=== PATIENT | male | born 1955 | race Caucasian/White ===

== ENCOUNTER 2024-08-16 10:45 | Emergency (ER) | payer MEDICARE, OTHER, SELFPAY ==
[2024-08-16 10:49] VITALS: BP 208/102
[2024-08-16 11:08] VITALS: BMI 46.1
[2024-08-16] MEDS: DECADRON 10 MG IM (12:00)
[2024-08-16] MEDS: LIORESAL 10 MG PO (12:00)
--- NOTE | 2024-08-16 13:09 | ED.GENMED ---
History of Present Illness
General
Chief Complaint: Back Pain
Source: patient and spouse
Time Seen by Provider: 08/16/24 11:39
History of Present Illness
History of Present Illness:
69-year-old male with past medical history of aortic repair presenting to the emergency department for evaluation of left-sided lower back pain that began gradually this past while he was performing housework, pain got acutely worse Friday
while still performing housework but noted that when attempting to get up off a glider chair the pain was so severe caused his left leg to give out causing him to fall down onto his left hip and has been having the pain and decreased range of motion
since. Patient states that he had his grandchildren with him over the weekend and brought them to [place] which only exacerbated his symptoms more
Past History
Past History
ED Past Medical History: Other (aortic repair)
ED Past Surgical History: Other
Social History
Tobacco: Smoker
Alcohol: None
Drug: None
Personal:
Living: with family
Employment: Employed
Family History
Family History: Other (Noncontributory)
Review of Systems
Review of Systems
All Other Systems: ROS reviewed and negative except as documented in HPI and ROS
Phy Exam
Physical Exam
Physical Exam:
GENERAL: Alert , in no apparent distress at rest however appears quite uncomfortable with any attempted movement secondary to his pain
EYE: clear conjunctiva b/l
NECK: Supple
ENT: mmm.
ABDOMEN: Soft, without focal tenderness, no r/g, no cvat
BACK: limited range of motion 2/2 pain, ttp left paralumbar/sacral region, no midline bony tenderness, no rashes
NEUROLOGICAL: Alert and oriented, no focal neuro deficits. Patellar deep tendon reflexes intact and equal bilaterally, sensation grossly intact and equal to light touch bilateral lower extremities
SKIN: Warm and dry, skin intact.
MUSCULOSKELETAL: No edema, well perfused. EHL intact bilaterally
PSYCH: Normal and appropriate interaction.
Scores
Heart Failure Risk
Heart Failure Risk Score: Not Applicable
Heart Score for Chest Pain Patients
STEMI patient?: Not applicable
Withdrawal Assessment of Alcohol
Withdrawal Assessment Completed?: Not applicable
Course
Orders/Labs/Results
Orders:
Orders
08/16/24 11:52
Baclofen [Lioresal] 10 mg PO NOW STA
Dexamethasone Sod Phosphate [Decadron] 10 mg IM NOW STA
CR Hip - LT w/wo Pel 2-3 Vw* Urgent
Comment:
Reason For Exam: pain
Include a pelvis x-ray?: Yes
CR Lumbar Spine Comp Min 4 Vw* Urgent
Comment:
Reason For Exam: pain, radiculopathy
Vital Signs
Initial and Last Documented VS:
Initial Vital Signs
Temp Pulse Resp BP Pulse Ox
97.5 F 52 16 208/102 98
08/16/24 10:49 08/16/24 10:49 08/16/24 10:49 08/16/24 10:49 08/16/24 10:49
Last Documented Vital Signs
Temp Pulse Resp BP Pulse Ox
97.4 F 51 18 177/98 95
08/16/24 13:33 08/16/24 13:33 08/16/24 13:33 08/16/24 13:33 08/16/24 13:33
MDM/Problems Addressed
Differential Diagnosis Includes:
lumbar strain, sciatica, disc herniation, nerve impingement, spinal stensosis, no symptoms to suggest fever/infectious symptoms or acute neurologic claudication/cauda equina
MDM/Problems Addressed:
69-year-old male presenting to the emergency department for evaluation of gradually worsening left-sided lower back pain over the weekend after doing housework. Pain worse today prompting ER visit. No fevers or infectious symptoms, no bladder or
bowel incontinence, no other red flag symptoms. Symptoms seem to be most pronounced with any attempted movement as well as palpation of the left paralumbar region. I suspect muscular etiology is most likely. Will check an x-ray of the L-spine as
well as hip. Pain control with steroid and muscle relaxant. Anticipated continued outpatient management with primary care as well as with information for Ortho. Patient advised if symptoms continue he may need more advanced imaging such as MRI
for further evaluation.
*Radiology
Radiology exam reviewed: preliminary read by ED provider (Degenerative changes that are most pronounced at L5-S1)
*Pulse Oximetry
Patient hypoxic: no
*Critical Care Note
Total Time (30-74mins, 75-104mins- exclusive of procedures): Not Applicable
Patient Management
Escalation/DeEscalation of care consider admission/obs:
Imaging shows degenerative changes. No acute fractures. Patient stable for discharge home. Follow-up with primary care provider. Aware of return precautions.
ED Attending Note
-
Portions of this chart may have been created with voice recognition software.� Occasional wrong word or��sound alike� substitutions may have occurred due to the inherent limitations of voice recognition software.
Discharge Plan
Departure
Patient Disposition: Home (Routine Discharge)
Date of Disposition: 08/16/24
Time of Disposition: 13:09
Patient with high blood pressure during this ER visit?: Yes
Discharge Problem:
Acute left lumbar radiculopathy
Instructions: Radiculopathy (DC)
Prescriptions:
New
methylprednisolone [Medrol (Abraham)] 4 mg tablets,dose pack
4 mg PO DIRECTED Qty: 21 0RF
baclofen 10 mg tablet
10 mg PO BID PRN (Reason: muscle spasm) Qty: 10 0RF
No Action
aspirin 81 MG tablet,delayed release (DR/EC)
81 mg PO DAILY 0RF
lisinopril 2.5 MG tablet
2.5 mg PO DAILY Qty: 30 1RF
oxycodone 5 MG tablet
5 mg PO Q4HPRN PRN (Reason: moderate pain) Qty: 10 0RF
Referrals:
Titus Pate MD [Active] -
NONE,* [Family Provider] -
Interventions
Interventions:
*Risk Screen - Suicide Last Done: 08/16/24 10:49
*General Assessment Last Done: 08/16/24 11:08
*Neglect/Abuse Screening Last Done: 08/16/24 10:49
ED- Fall Risk Assessment Last Done: 08/16/24 14:07
*ED COVID-19 Vaccine History Last Done: 08/16/24 11:08
*Nursing Disposition Last Done: 08/16/24 14:07
ED-Musculoskeletal Assessment Last Done: 08/16/24 11:11
Discharge Date and Time
Discharge Date/Time: 08/16/24 13:37
Print Language: TELUGU
[2024-08-16 13:33] VITALS: BP 177/98
== END 2024-08-16 13:37 | disposition home or self-care (01) ==
LOC: EMR 10:45
PROVIDERS: EMERGENCY PHYSICIAN Emergency Medicine
DX: M54.16 Radiculopathy, lumbar region (principal); W19.XXXA Unspecified fall, initial encounter; F17.200 Nicotine dependence, unspecified, uncomplicated; R03.0 Elevated blood-pressure reading, without diagnosis of hypertension
CPT/HCPCS: 99284; 96372; 72110; 73502

== ENCOUNTER → 2024-09-28 15:20 | Outpatient (REF) | payer MEDICARE, OTHER, SELFPAY ==
[2024-09-28 16:41] LABS: Blood Urea Nitrogen 17 mg/dl (9-20); Calcium 9.5 mg/dl (8.4-10.2); Carbon Dioxide 33 mmol/L (22-30); Chloride 96 mmol/L (98-107); Glucose 123 mg/dl (70-99); Potassium 4.7 mmol/L (3.5-5.1); Sodium 139 mmol/L (135-145); eGFR > 60.00
== END ==
LOC: REG 15:20
PROVIDERS: ATTENDING PHYSICIAN Surgery Vascular Surgery; FAMILY PHYSICIAN Family Medicine
DX: Z98.890 Other specified postprocedural states (principal)
CPT/HCPCS: 36415; 80048

== ENCOUNTER → 2024-11-03 08:41 | Outpatient (REF) | payer MEDICARE, OTHER, SELFPAY | LOC: RAD 08:41 | PROVIDERS: ATTENDING PHYSICIAN Surgery Vascular Surgery; FAMILY PHYSICIAN Family Medicine | DX: I71.40 Abdominal aortic aneurysm, without rupture, unspecified (principal) | CPT/HCPCS: 74174; Q9967 ==

== ENCOUNTER → 2024-11-16 09:29 | Outpatient (REF) | payer MEDICARE, OTHER, SELFPAY ==
[2024-11-16 11:57] LABS: Urine Albumin Trace (Neg - Trace); Urine Bilirubin Negative (Negative); Urine Character Clear (Clear); Urine Color Yellow; Urine Glucose Negative (Negative); Urine Ketone Negative (Negative); Urine Leukocyte Negative (Negative); Urine Nitrite Negative (Negative); Urine Occult Blood Negative (Negative); Urine Specific Gravity 1.025 (<1.030); Urine Urobilinogen Negative (Neg - 1+)
[2024-11-16 12:00] LABS: ALT (SGPT) 109 U/L (0-50); AST (SGOT) 77 U/L (17-59); Albumin 4.2 g/dl (3.5-5.0); Alkaline Phosphatase 96 U/L (38-126); Blood Urea Nitrogen 22 mg/dl (9-20); Calcium 9.6 mg/dl (8.4-10.2); Carbon Dioxide 31 mmol/L (22-30); Chloride 97 mmol/L (98-107); Glucose 151 mg/dl (70-99); Potassium 4.9 mmol/L (3.5-5.1); Sodium 137 mmol/L (135-145); Total Bilirubin 0.6 mg/dl (0.2-1.3); Total Protein 7.5 g/dl (6.3-8.2); eGFR > 60.00
[2024-11-16 12:10] LABS: % Basophils 1.5 % (0-2); % Eosinophils 4.2 % (0-6); % Immature Granulocytes 1.3 % (0-0.5); % Lymphocytes 26.3 % (20.5-51.1); % Monocytes 9.7 % (1.7-9.3); Absolute Basophils 0.1 10^3/uL (0-0.2); Absolute Eosinophils 0.3 10^3/uL (0-0.7); Absolute Immature Granulocytes 0.1 10^3/uL (0-0.05); Absolute Lymphocytes 1.6 10^3/uL (1.2-3.4); Absolute Monocytes 0.6 10^3/uL (0.1-0.6); Absolute Neutrophils 3.4 10^3/uL (1.4-6.5); Hemoglobin 14.9 g/dL (13.0-18.0); Mean Corp Hgb Conc. 32.4 g/dL (33.0-37.0); Mean Corpuscular Hgb 29.9 pg (27.0-31.0); Mean Corpuscular Volume 92.2 fL (80.0-94.0); Nucleated Red Blood Cells % 0 % (-); Red Blood Cell Count 4.99 10^6/uL (4.70-6.10); Red Cell Dist. Width 14.3 % (11.5-14.5)
[2024-11-16 12:30] LABS: TSH 1.93 uIU/ml (0.47-4.68)
== END ==
LOC: HWLAB 09:29
PROVIDERS: ATTENDING PHYSICIAN Family Medicine
DX: I10 Essential (primary) hypertension (principal)
CPT/HCPCS: 36415; 80053; 81003; 84443; 85025

== ENCOUNTER → 2024-11-26 13:00 | Outpatient (REF) | payer MEDICARE, OTHER, SELFPAY ==
[2024-11-26 13:57] LABS: % Basophils 1.3 % (0-2); % Eosinophils 2.5 % (0-6); % Immature Granulocytes 1.3 % (0-0.5); % Lymphocytes 27.2 % (20.5-51.1); % Neutrophils 58.7 % (42.2-75.2); Absolute Basophils 0.1 10^3/uL (0-0.2); Absolute Eosinophils 0.2 10^3/uL (0-0.7); Absolute Immature Granulocytes 0.1 10^3/uL (0-0.05); Absolute Lymphocytes 2.1 10^3/uL (1.2-3.4); Absolute Monocytes 0.7 10^3/uL (0.1-0.6); Absolute Neutrophils 4.5 10^3/uL (1.4-6.5); Hematocrit 44.1 % (39.0-52.0); Hemoglobin 14.8 g/dL (13.0-18.0); Mean Corp Hgb Conc. 33.6 g/dL (33.0-37.0); Mean Corpuscular Hgb 29.5 pg (27.0-31.0); Mean Platelet Volume 8.7 fL (7.4-10.4); Nucleated Red Blood Cells % 0 % (-); Platelet Count 255 10^3/uL (130-400); Red Blood Cell Count 5.01 10^6/uL (4.70-6.10); Red Cell Dist. Width 14.1 % (11.5-14.5); White Blood Cell Count 7.6 10^3/uL (4.8-10.8)
[2024-11-26 14:17] LABS: ALT (SGPT) 111 U/L (0-50); AST (SGOT) 85 U/L (17-59); Albumin 4.5 g/dl (3.5-5.0); Alkaline Phosphatase 100 U/L (38-126); Direct Bilirubin 0.4 mg/dl (0.0-0.4); HDL Cholesterol 43 mg/dl; LDL Cholesterol, Calculated 106 mg/dl; Total Bilirubin 0.8 mg/dl (0.2-1.3); Total Cholesterol 195 mg/dl (50-199); Total Protein 7.4 g/dl (6.3-8.2); Triglyceride 232 mg/dl (10-149); Very Low Density Lipoprotein 46 mg/dl (0-30)
[2024-11-26 14:34] LABS: Glycohemoglobin (HgbA1c) 7.8 % (4.0-5.6)
[2024-11-26 14:49] LABS: Hepatitis B Surface Antigen Negative (Negative)
[2024-11-26 15:06] LABS: Hepatitis A Antibody, Total Positive (Negative); Hepatitis B Surface Antibody Negative; Hepatitis C Antibody Reactive (Negative)
== END ==
LOC: REG 13:00
PROVIDERS: ATTENDING PHYSICIAN Family Medicine
DX: E78.5 Hyperlipidemia, unspecified (principal); Z12.5 Encounter for screening for malignant neoplasm of prostate; D69.1 Qualitative platelet defects; R73.9 Hyperglycemia, unspecified; R74.01 Elevation of levels of liver transaminase levels
CPT/HCPCS: 36415; 80061; 80076; 83036; 85025; 86706; 86708; 86803; 87340; G0103

== ENCOUNTER → 2024-12-10 11:12 | Outpatient (REF) | payer MEDICARE, OTHER, SELFPAY ==
[2024-12-10 13:19] LABS: Hepatitis C Antibody Reactive (Negative)
== END ==
LOC: REG 11:12
PROVIDERS: ATTENDING PHYSICIAN Family Medicine
DX: Z86.19 Personal history of other infectious and parasitic diseases (principal)
CPT/HCPCS: 36415; 86803

== ENCOUNTER → 2025-01-08 07:53 | Outpatient (REF) | payer MEDICARE, OTHER, SELFPAY ==
[2025-01-08 09:31] LABS: HDL Cholesterol 38 mg/dl; LDL Cholesterol, Calculated 115 mg/dl; Total Cholesterol 178 mg/dl (50-199); Triglyceride 129 mg/dl (10-149); Very Low Density Lipoprotein 25 mg/dl (0-30)
== END ==
LOC: REG 07:53
PROVIDERS: ATTENDING PHYSICIAN Internal Medicine Cardiovascular Disease
DX: E78.2 Mixed hyperlipidemia (principal)
CPT/HCPCS: 36415; 80061

== ENCOUNTER → 2025-01-31 12:35 | Outpatient (REF) | payer MEDICARE, OTHER, SELFPAY | LOC: RCS 12:35 | PROVIDERS: ATTENDING PHYSICIAN Internal Medicine Cardiovascular Disease; FAMILY PHYSICIAN Family Medicine | DX: R94.31 Abnormal electrocardiogram [ECG] [EKG] (principal) | CPT/HCPCS: 93306 ==

== ENCOUNTER → 2025-06-23 08:12 | Outpatient (REF) | payer MEDICARE, OTHER, SELFPAY | LOC: PAVMRI 08:12 | PROVIDERS: ATTENDING PHYSICIAN Physical Medicine & Rehabilitation | DX: M54.16 Radiculopathy, lumbar region (principal) | CPT/HCPCS: 72148 ==